=== PATIENT | female | born 1950 | race Caucasian/White ===

== ENCOUNTER → 2016-10-27 | Day surgery (SDC) | payer MEDICARE, BC ==
[~2016-10-27] MED LIST: ACETAMINOPHEN PO; CENTRUM SILVER1 EAC1 PO; DYAZIDE 37.5/251 CAP PO; IBUPROFEN200 M1 PO; LOPID600 MG; LORTAB 10-5001 EACH PO; NAPROXEN PO; NEXIUM; NEXIUM PO; OMEPRAZOLE40 M1 PO; ORUDIS75 M1 PO; PRILOSEC PO; TAGAMET; TAGAMET PO; TRIAMTERENE-HC1 EAC1 PO; ZOFRAN PO
--- NOTE | ~2016-10-27 | OR ---
Unit #: [id number] #: [id number] Patient: HERACLIO SAINZ [id number] [address] [place], [place] [address] [id number] MR#: [id number] NAME: HERACLIO SAINZ ROOM: Date of Procedure: 10/27/2016 Admission Date: 10/27/2016 Surgeon: Brady Cortez M.D. : 1950 Attending Physician: Brady Cortez M.D. Primary Care Physician: Vickie Chaves M.D. OPERATIVE REPORT PREOPERATIVE DIAGNOSES Dysphagia. PROCEDURES PERFORMED 1. Upper gastrointestinal endoscopy and biopsy. 2. Upper gastrointestinal endoscopy and dilation with a 60-Maldivian Fall dilator. POSTOPERATIVE DIAGNOSES The patient had moderate prepyloric antral gastritis, otherwise examination was normal up to third part of duodenum. No esophageal stricture or ring was seen. The esophagus was dilated empirically using a 60-Maldivian Fall dilator. RECOMMENDATIONS The patient will continue current therapy, which includes PPI therapy b.i.d. She will be followed up in the office in 8 weeks' time. SEDATION USED MAC. DESCRIPTION OF PROCEDURE Following detailed explanation of the potential risks and complications of an upper endoscopy, namely perforation, bleeding, and complications related to sedation, the patient was brought to GI lab and laid in the left lateral decubitus position. Lubricated tip of the Olympus video upper endoscope was passed through the bite block into the proximal esophagus under direct vision. The entire esophageal mucosa was examined and appeared normal. Z-line was nicely demarcated, there being no esophagitis or hiatus hernia. The scope was then advanced into the gastric cavity and the latter was insufflated. Mucosa of the fundus, body, and antrum was examined. Moderate prepyloric antral erythema erosions noted indicating antral gastritis. Pylorus was intubated with visualization of the normal duodenal bulb and second and third part of the duodenum. Upon withdrawal and retroflexion, incisura, cardia, and greater curve examined and biopsy obtained from the antrum for CLOtest. The scope was then withdrawn in the distal esophagus. Entire esophageal mucosa was examined all the way up to pharynx. No additional findings were noted. In view of the presence of dysphagia, an empiric dilation of the esophagus was done. A 60-Maldivian Fall dilator was passed through the esophagus. Relook endoscopy did not show any blood at the cardioesophageal junction. The scope was then withdrawn patient returned to the recovery area. [facility] Unit #: [id number] #: [id number] Patient: HERACLIO SAINZ tolerated the procedure without any postprocedure complications. Dictated by... Chucho Donato/macy TD: 10/27/2016 22:23 JOB #: [id number] CC: Vickie Chaves M.D. OPERATIVE REPORT Page 1 of 1 X Brady Cortez MD X PROCEDURE OPERATIVE NOTE
== END | disposition home or self-care (01) ==
LOC: COPS 09:56
DX: R13.10 Dysphagia, unspecified (principal); K29.70 Gastritis, unspecified, without bleeding; K21.9 Gastro-esophageal reflux disease without esophagitis; Z88.5 Allergy status to narcotic agent; Z91.040 Latex allergy status
CPT/HCPCS: 87077